=== PATIENT | female | born 1945 | race Caucasian/White ===

== ENCOUNTER 2016-12-09 10:12 | Emergency (ER) | payer MEDICARE, BC ==
[2016-12-09 11:18] VITALS: BP 158/62
--- NOTE | 2016-12-09 12:03 | UC ---
Complaint Female HPI - HPI Summary HPI Summary: Pain and burning with urination this am. No gross hematuria. Hx prior UTI in , grew 10,000 Ecoli, treated and cured with Macrobid x 7 days. No fever. Used to use vagifem, not any longer due to concern for dementia risk. Saw Dr. Garcia, urologist in [place], has cyst on kidney, saw him last January [id number], and is due to see him again in January 2017. Was evaluated for hematuria. - History Of Current Complaint Chief Complaint: UC Stated Complaint: URINARY Time Seen by Provider: 12/09/16 11:48 Hx Obtained From: Patient Hx Last Menstrual Period: n/a Onset/Duration: Sudden Onset, Lasting Hours, Still Present Timing: Constant Severity Initially: Moderate Severity Currently: Moderate Pain Intensity: 8 Pain Scale Used: 0-10 Numeric Character: Burning Aggravating Factor(s): Nothing Alleviating Factor(s): Nothing Associated Signs And Symptoms: Negative: Fever, Back Pain, Vaginal Bleeding/ Discharge, Vaginal Discharge, Nausea, Vomiting(# Of Episodes =) Related Hx: Similar Episode/Dx as: - UTI - Allergies/Home Medications Allergies/Adverse Reactions: Allergies Allergy/AdvReac Type Severity Reaction Status Date / Time Penicillin V Allergy Intermediate Rash Verified 12/09/16 11:09 Sulfa Antibiotics AdvReac Congestion Verified 12/09/16 11:09 Home Medications: Home Medications Levothyroxine TAB* [Synthroid 25 MCG TAB*] mcg PO DAILY 12/09/16 [History] Ranitidine TAB (NF) [Zantac TAB (NF)] 300 mg PO DAILY 12/09/16 [History Confirmed 12/09/16] PMH/Surg Hx/FS Hx/Imm Hx Endocrine History Of: Reports: Hypothyroidism Denies: Diabetes Cardiovascular History Of: Reports: Hypertension Denies: Cardiac Disorders Respiratory History Of: Denies: COPD, Asthma GI/ History Of: Denies: Ulcer - Surgical History Surgical History: Yes Surgery Procedure, Year, and Place: appy, hysterectomy, pituitary tumor removed ; 3X Breast Biopsies that were benign; Roator cuff repair 6 years ago right shoulder. ENT scoping with Dr. Mejia. - Family History Known Family History: Positive: Other - no history of renal disease,daughter had urethra dilated & renal stone - Social History Alcohol Use: Occasionally Substance Use Type: None Smoking Status (MU): Never Smoked Tobacco Type: Cigars Amount Used/How Often: had 3 puffs of cigar over 14 of march Have You Smoked in the Last Year: Yes Review of Systems Constitutional: Negative Skin: Negative Eyes: Negative ENT: Negative Respiratory: Negative Cardiovascular: Negative Gastrointestinal: Negative Genitourinary: Dysuria Motor: Negative Neurovascular: Negative Musculoskeletal: Negative Neurological: Negative Psychological: Negative All Other Systems Reviewed And Are Negative: Yes Physical Exam Triage Information Reviewed: Yes Appearance: Well-Appearing, Pain Distress, Thin Vital Signs: Initial Vital Signs Temp 98.4 F 12/09/16 11:03 Pulse 73 12/09/16 11:03 Resp 16 12/09/16 11:03 BP 158/62 12/09/16 11:03 Pulse Ox 100 12/09/16 11:03 elevated BP noted Vital Signs Reviewed: Yes Eyes: Positive: Conjunctiva Clear ENT: Positive: Normal ENT inspection Neck exam: Normal Respiratory: Positive: Lungs clear, Normal breath sounds, No respiratory distress Cardiovascular: Positive: RRR, No Murmur, Pulses Normal, Brisk Capillary Refill Abdomen Description: Positive: Nontender, No Organomegaly, Soft, McBurney's Point Tenderness, Peritoneal Signs. Negative: Bruit, CVA Tenderness (R), CVA Tenderness (L), Distended, Guarding, Hepatomegaly, Pulsatile Mass, Splenomegaly Bowel Sounds: Positive: Present Musculoskeletal: Positive: Strength Intact, ROM Intact Neurological: Positive: Alert, Muscle Tone Normal Psychological Exam: Normal Skin Exam: Normal Complaint Female Dx - Differential Dx/Diagnosis Differential Diagnosis/HQI/PQRI: Ovarian Cyst, Ureteral Stone, Urinary Tract Infection Provider Diagnoses: UTI. hematuria Discharge - Discharge Plan Condition: Stable Disposition: HOME Prescriptions: Nitrofurantoin Monohyd Macro [Macrobid] 100 mg PO BID #10 cap Phenazopyridine TAB* [Pyridium 100 mg TAB*] 100 mg PO TID #10 tab Patient Education Materials: Urinary Tract Infection in Women (ED) Referrals: Michele Patel DO [Primary Care Provider] - 7 Days (regarding the UTI and also your blood pressure which was elevated ) Additional Instructions: Your blood pressure was 158/62 today. Please be sure to follow up with your doctor within one month about this. We have sent a urine culture today. We will notify you if you need additional treatment based on this result. We have also prescribed phenazopyridine which helps with the pain and burning symptoms and turns your urine bright orange. Return to urgent care if you have any new or worsening symptoms.
== END 2016-12-09 12:16 | disposition home or self-care (01) ==
LOC: UCCORT 10:12
DX: N39.0 Urinary tract infection, site not specified (principal); R31.9 Hematuria, unspecified; I10 Essential (primary) hypertension; E03.9 Hypothyroidism, unspecified; Z88.0 Allergy status to penicillin; Z88.2 Allergy status to sulfonamides
CPT/HCPCS: 81003; 87086; 99212; G0463